=== PATIENT | female | born 1985 | race Caucasian/White ===

== ENCOUNTER → 2021-09-19 | Outpatient (CLI) | payer OTHER ==
--- NOTE | 2021-09-19 16:13 | KCIC ---
XR LUMBAR SPINE 2-3V History: LBP 4 months, no recent injury, fatty lipomas, Rt radiculopathy. Comparison: None. Technique: 3 standing views of the lumbar spine. Findings: There are 5 non-rib bearing lumbar vertebral segments. There is no evidence of fracture. No destructive osseous lesions. Alignment is normal. No significant facet disease. Mild disc space narrowing at L5-S1. Sacroiliac joints are unremarkable. Soft tissues are unremarkable. IMPRESSION: 1. Mild disc space narrowing at L5-S1. No acute osseous abnormality in the lumbar spine. Electronically signed by: Octavio Peralta MD (09/19/2021 4:11 PM) [id number]
--- NOTE | 2021-09-19 16:18 | KCIC ---
XR HAND_RIGHT 3 VIEWS DATE: 09/19/2021 3:30 PM INDICATION: Pt. punched wall 5 days ago. Rt. hand pain, bruise to 4th-5th digits. COMPARISON: None. FINDINGS: Bones: There is no evidence of acute fracture or dislocation. Joints: The joint spaces are normal. Miscellaneous: None. IMPRESSION: No evidence of acute fracture. Electronically signed by: Pedrito Krishnamurthy MD (09/19/2021 4:15 PM) [id number]
== END ==
LOC: KCIC 15:24
PROVIDERS: ATTEND Nurse Practitioner Family
DX: S69.91XA Unspecified injury of right wrist, hand and finger(s), initial encounter (principal); M48.07 Spinal stenosis, lumbosacral region; W26.8XXA Contact with other sharp object(s), not elsewhere classified, initial encounter; Y93.89 Activity, other specified; Y92.89 Other specified places as the place of occurrence of the external cause; Y99.8 Other external cause status
CPT/HCPCS: 72100; 73130